=== PATIENT | female | born 1970 | race Caucasian/White ===

== ENCOUNTER 2017-04-15 19:09 | Inpatient (IN) | payer BC, OTHER ==
[~2017-04-15] VITALS: Ht 165.1 cm; Wt 79.5 kg
[2017-04-15 19:57] LABS: BLOOD UREA NITROGEN 10 mg/dL (7-18)
[2017-04-15] MEDS ORDERED: SODIUM CHLORIDE 0.9% 1,000ML IVBOLUS ONE (20:00)
[2017-04-15] MEDS ORDERED: SODIUM CHLORIDE FLUSH 10ML SYR IVF ONE (20:00)
[2017-04-15] MEDS ORDERED: ASPIRIN 81 MG TABLET CHEW PO ONE (20:00)
[2017-04-15] MEDS ORDERED: ENALAPRILAT 1.25 MG/ML, 2ML IVPush PRN (22:30)
[2017-04-15] MEDS ORDERED: POTASSIUM CHLORIDE 20 MEQ TAB.ER.PRT PO ONE (22:30)
[2017-04-15] MEDS ORDERED: ONDANSETRON 2MG/ML, 2ML IVPush PRN (22:30)
[2017-04-15 23:23] LABS: ASPARTATE AMINO TRANSFERASE 19 U/L (15-37); C-REACTIVE PROTEIN, QUANT 0.16 mg/dL (0.02-0.49)
[2017-04-15] MEDS ORDERED: OMNIPAQUE 350 MG/ML, 100ML BOTTLE ONE (23:51)
[2017-04-16] MEDS: ACETAMINOPHEN 325 MG TABLET PO PRN ×2 (00:23→04:05)
[2017-04-16 00:48] LABS: DAU SCREEN DISCLAIMER
[2017-04-16 04:00] VITALS: BP 108/68
[2017-04-16 04:53] LABS: BLOOD UREA NITROGEN 9 mg/dL (7-18)
[2017-04-16] MEDS ORDERED: FENTANYL PF 100 MCG/2ML IVPush PRN ×2 (10:15→10:30)
[2017-04-16] MEDS ORDERED: FENTANYL PF 100 MCG/2ML ONE (10:22)
[2017-04-16] MEDS ORDERED: FENTANYL PF 100 MCG/2ML IVPush ONE ×2 (10:45→11:00)
[2017-04-16] MEDS ORDERED: GADOBUTROL 7.5 MMOL/7.5 ML PFS ONE (11:01)
[2017-04-16 19:46] VITALS: BP 101/65
[2017-04-16] MEDS: SIMVASTATIN 40 MG TABLET PO SCH (22:01)
[2017-04-17 01:24] VITALS: BP 92/61
[2017-04-17 05:27] LABS: ASPARTATE AMINO TRANSFERASE 13 U/L (15-37); BLOOD UREA NITROGEN 10 mg/dL (7-18)
[2017-04-17 05:44] LABS: HIV 1&2 ANTIBODY SCREEN Nonreactive (Nonreactive); HIV-1 p24 ANTIGEN Nonreactive (Nonreactive)
[2017-04-17 06:31] VITALS: BP 105/68
[2017-04-17] MEDS: NICOTINE 21 MG/24 HR PATCH.TD24 TD SCH (08:45)
[2017-04-17 13:30] LABS: IS PT STATUS REG ER OR PRE ER? NO
[2017-04-17 14:21] VITALS: BP 121/81
[2017-04-17] MEDS: ACETAMINOPHEN 325 MG TABLET PO PRN ×2 (15:18→22:26)
[2017-04-17] MEDS: FOLIC ACID 1 MG TABLET PO SCH (18:15)
[2017-04-17] MEDS: THIAMINE 100MG TABLET PO SCH (18:15)
[2017-04-17] MEDS ORDERED: MORPHINE SULFATE 4 MG/ML, 1ML ONE (18:45)
[2017-04-17] MEDS ORDERED: morphine SULFATE 10 MG/ML, 1ML IVPush PRN (19:00)
[2017-04-17 20:12] VITALS: BP 116/80
[2017-04-17] MEDS: SIMVASTATIN 40 MG TABLET PO SCH (20:28)
[2017-04-18 00:43] VITALS: BP 108/73
[2017-04-18 01:41] VITALS: BP 99/60
[2017-04-18 05:30] LABS: BLOOD UREA NITROGEN 13 mg/dL (7-18)
[2017-04-18 08:17] VITALS: BP 115/97
[2017-04-18] MEDS: NICOTINE 21 MG/24 HR PATCH.TD24 TD SCH (08:19)
[2017-04-18] MEDS: THIAMINE 100MG TABLET PO SCH (08:20)
[2017-04-18] MEDS: FOLIC ACID 1 MG TABLET PO SCH (08:20)
[2017-04-18] MEDS: DOCUSATE 100 MG CAPSULE PO PRN (10:32)
[2017-04-18] MEDS ORDERED: LIDOCAINE 2%, 20ML ONE (13:07)
[2017-04-18 14:00] VITALS: BP 127/84
[2017-04-18 15:00] LABS: ANA SCREEN POSITIVE (Negative)
[2017-04-18 18:50] VITALS: BP 108/73
[2017-04-18] MEDS ORDERED: DOCU-30 PO (19:55)
[2017-04-18] MEDS ORDERED: NICO1PAT5 TD (19:55)
[2017-04-18] MEDS ORDERED: THIA100T6 PO (19:55)
[2017-04-18] MEDS ORDERED: SIMV40TA3 PO (19:55)
[2017-04-18] MEDS ORDERED: FOLI-17 PO (19:55)
[2017-04-18] MEDS ORDERED: ACET325T14 PO (19:55)
[2017-04-18] MEDS: SIMVASTATIN 40 MG TABLET PO SCH (20:01)
[2017-04-19 01:34] VITALS: BP 103/68
[2017-04-19] MEDS: ACETAMINOPHEN 325 MG TABLET PO PRN (04:13)
[2017-04-19 06:19] LABS: ASPARTATE AMINO TRANSFERASE 13 U/L (15-37); BLOOD UREA NITROGEN 13 mg/dL (7-18)
[2017-04-19 06:52] VITALS: BP 105/66
[2017-04-19] MEDS: FOLIC ACID 1 MG TABLET PO SCH (08:35)
[2017-04-19] MEDS: THIAMINE 100MG TABLET PO SCH (08:35)
[2017-04-19] MEDS: NICOTINE 21 MG/24 HR PATCH.TD24 TD SCH (08:35)
[2017-04-19] MEDS: DOCUSATE 100 MG CAPSULE PO PRN (11:49)
== END 2017-04-19 13:00 | disposition home or self-care (01) | DRG 41 ==
LOC: ED 21:00 → EDIP 21:59 → ICU 04-16 → 5SO 04-16 17:32 → ICU 04-16 17:33 → 5SO 04-16 18:11
PROVIDERS: ADMIT Internal Medicine; ATTEND Internal Medicine
PROC: 0JH602Z Insertion of Monitoring Device into Chest Subcutaneous Tissue and Fascia, Open Approach (ICD-10-PCS; principal; 2017-04-18)
DX: I62.9 Nontraumatic intracranial hemorrhage, unspecified (principal); G81.94 Hemiplegia, unspecified affecting left nondominant side; F17.210 Nicotine dependence, cigarettes, uncomplicated; R29.810 Facial weakness; F32.9 Major depressive disorder, single episode, unspecified; F41.9 Anxiety disorder, unspecified; G31.9 Degenerative disease of nervous system, unspecified; Z81.8 Family history of other mental and behavioral disorders; Z83.3 Family history of diabetes mellitus; Z71.6 Tobacco abuse counseling; Z79.899 Other long term (current) drug therapy
CPT/HCPCS: 36415; 70450; 70498; 70544; 70553; 71010; 80048; 80053; 80061; 80076; 80307; 81240; 81241; 82040; 83036; 83735; 84443; 84484; 84703; 85025; 85300; 85301; 85303; 85306; 85598; 85610; 85613; 85651; 85670; 85730; 85732; 86038; 86039; 86140; 86146; 86147; 86703; 87081; 87899; 93005; 93306; 93880; A9585; J3010; J3490; Q9967; 92523-GN; G0435; J2270; J7030

== ENCOUNTER 2017-08-22 10:22 | Emergency (ER) | payer OTHER ==
[~2017-08-22] VITALS: Ht 162.6 cm; Wt 77.5 kg
[~2017-08-22 10:22] MED LIST: ACET325T14 PO; DOCU-131 PO; FOLI-17 PO; NICO-487 TD; SIMV40TA3 PO; THIA100T6 PO
[2017-08-22 11:38] LABS: HEMATOCRIT 42.7 % (34.6-47.8); HEMOGLOBIN 14.8 g/dL (11.7-16.4); WHITE BLOOD COUNT 10.3 x10^3/uL (3.4-10)
[2017-08-22 11:46] LABS: ASPARTATE AMINO TRANSFERASE 18 U/L (15-37); BLOOD UREA NITROGEN 11 mg/dL (7-18)
[2017-08-22 11:53] LABS: IS PT STATUS REG ER OR PRE ER? YES
[2017-08-22 11:55] LABS: PATH.CAST-FLAG NOT PRESENT; SPERM-FLAG NOT PRESENT; SRC-FLAG NOT PRESENT; XTAL-FLAG NOT PRESENT; YLC-FLAG NOT PRESENT
[2017-08-22] MEDS ORDERED: HYDROmorphone 1 MG/ML, 1ML IV ONE (14:30)
[2017-08-22] MEDS ORDERED: GADOBUTROL 7.5 MMOL/7.5 ML PFS ONE (15:35)
[2017-08-22 15:45] VITALS: BP 98/54
[2017-08-22 16:33] LABS: DAU SCREEN DISCLAIMER
== END 2017-08-22 16:39 | disposition home or self-care (01) ==
LOC: ED 11:42
DX: R31.29 Other microscopic hematuria (principal); Z86.73 Personal history of transient ischemic attack (TIA), and cerebral infarction without residual deficits
CPT/HCPCS: 36415; 70450; 70544; 70553; 71010; 80053; 80307; 81001; 84484; 85025; 93005; 96374; 99291; A9585; J1170; G0479

== ENCOUNTER 2021-04-01 11:51 | Emergency (ER) | payer OTHER ==
[~2021-04-01] VITALS: Ht 165.1 cm; Wt 73.9 kg
[~2021-04-01 11:51] MED LIST changes: -FOLI-17 PO; +FOLI1TAB32 PO; -NICO-487 TD; +NICO-587 TD; +SIMV40TA20 PO; -SIMV40TA3 PO; -THIA100T6 PO; +THIA100T67 PO
--- NOTE | 2021-04-01 12:11 | NUR ---
PT AMBULATORY TO ROOM 17 STATES "I JUST HAVEN'T FELT WELL". PT DENIES CP. STATES MILD SOB, COUGH, CONGESTION X 1 WEEK. PT ALSO SUFFERS FROM ANXIETY. PT STATES SHE HAS LOST 30 LBS IN 3 MONTHS W/O TRYING. PT STATES SHE WENT TO ON [address] AND WAS GIVEN A COVID TEST AND CXR THERE AND WAS TOLD TO COME TO ED. PT RESTING ON GURNEY. NADN. MONITORS APPLIED. VSS. WARM BLANKET PROVIDED. CALL LIGHT IN REACH.
--- NOTE | 2021-04-01 12:53 | NUR ---
PT RESTING ON GURNEY. NADN. POSADAS.
[2021-04-01] MEDS ORDERED: LORazepam 1MG TABLET ONE (12:55)
[2021-04-01 12:59] LABS: BASOPHILS % (AUTO) 1 % (0-1); EOSINOPHILS % (AUTO) 2 % (1-7); LYMPHOCYTES % (AUTO) 32 % (22-44); MEAN CORPUSCULAR HEMOGLOBIN 33.1 pg (27.0-34.8); MEAN CORPUSCULAR HGB CONC 34.4 g/dL (32.4-35.8); MEAN PLATELET VOLUME 7.9 fL (7.4-10.4); MONOCYTES % (AUTO) 11 % (2-9); NEUTROPHILS % (AUTO) 55 % (42-75); PLATELET COUNT 198 x10^3/uL (130-400); RED BLOOD COUNT 4.58 x10^6/uL (3.82-5.3); RED CELL DISTRIBUTION WIDTH 12.9 % (9.6-15.2)
[2021-04-01] MEDS ORDERED: LORazepam 1MG TABLET PO ONE (13:00)
[2021-04-01 13:10] LABS: ALBUMIN 3.6 g/dL (3.4-5.0); ANION GAP 5 mmol/L (5-15); CALCIUM 9.2 mg/dL (8.5-10.1); CHLORIDE 108 mmol/L (98-107)
[2021-04-01 13:18] LABS: MICROSCOPIC NOT IND
[2021-04-01 13:23] LABS: ALANINE AMINOTRANSFERASE 114 U/L (12-78); ALKALINE PHOSPHATASE 164 U/L (45-117); BILIRUBIN,TOTAL 0.4 mg/dL (0.2-1.0); CREATININE 0.74 mg/dL (0.55-1.02); TOTAL PROTEIN 7.7 g/dL (6.4-8.2); TROPONIN I < 0.015 ng/mL (0.000-0.045)
--- NOTE | 2021-04-01 13:49 | NUR ---
PT RESTING ON GURNEY. NADN. POSADAS.
--- NOTE | 2021-04-01 13:50 | NUR ---
PT CHART REVIEWED AND PLACED FOR RECHECK.
[2021-04-01] MEDS ORDERED: METHOCARBAMOL 750 MG TABLET ONE (14:21)
[2021-04-01] MEDS ORDERED: KETOROLAC 60 MG/2 ML ONE (14:21)
[2021-04-01] MEDS ORDERED: METHOCARBAMOL 750 MG TABLET PO ONE (14:30)
[2021-04-01] MEDS ORDERED: KETOROLAC 30 MG/1 ML IM ONE (14:30)
[2021-04-01 14:54] VITALS: BP 118/74
--- NOTE | 2021-04-01 14:55 | NUR ---
PT RESTING ON GURNEY. NADN. POSADAS.
== END 2021-04-01 15:18 | disposition home or self-care (01) ==
LOC: ED 12:57
DX: M54.6 Pain in thoracic spine (principal); J00 Acute nasopharyngitis [common cold]; R63.4 Abnormal weight loss; R94.5 Abnormal results of liver function studies; I10 Essential (primary) hypertension; Z86.73 Personal history of transient ischemic attack (TIA), and cerebral infarction without residual deficits
CPT/HCPCS: 36415; 71045; 80053; 81003; 83690; 83880; 84443; 84484; 84703; 85025; 85379; 93005; 96372; 99285; J1885

== ENCOUNTER 2021-06-10 20:45 | Emergency (ER) | payer OTHER ==
[~2021-06-10] VITALS: Ht 165.1 cm; Wt 73.9 kg
[2021-06-10 21:00] VITALS: BP 113/59
--- NOTE | 2021-06-10 23:50 | NUR ---
NIL X [phone]
--- NOTE | 2021-06-11 00:08 | NUR ---
NIL X 2 @ 0006
--- NOTE | 2021-06-11 00:13 | NUR ---
NIL X 3 @[phone]
== END 2021-06-11 00:16 | disposition left against medical advice (07) ==
LOC: ED 21:00
DX: R51.9 Headache, unspecified (principal); R11.0 Nausea; H53.8 Other visual disturbances; Z86.73 Personal history of transient ischemic attack (TIA), and cerebral infarction without residual deficits
CPT/HCPCS: 93005; 99283